=== PATIENT | female | born 1970 | race Caucasian/White ===

== ENCOUNTER 2023-09-29 14:03 | Emergency (ER) | payer OTHER ==
[2023-09-29 14:22] VITALS: BP 149/53; PULSE 89; RESP 18; TEMP 98; BMI 33.4
[2023-09-29] MEDS ORDERED: ACETAMINOPHEN 500 MG TABLET (FP) ONE (14:54)
[2023-09-29] MEDS ORDERED: DIPHTH,PERTUSS(ACELL),TET 0.5 ML DISP.SYRIN IM ONE (14:54)
[2023-09-29] MEDS: DIPHTH,PERTUSS(ACELL),TET 0.5 ML DISP.SYRIN IM ONE (14:59)
[2023-09-29] MEDS: ACETAMINOPHEN 500 MG TABLET (FP) PO ONE (15:01)
== END 2023-09-29 17:59 | disposition home or self-care (01) ==
LOC: JERFT 14:03
PROC: 3E0234Z Introduction of Serum, Toxoid and Vaccine into Muscle, Percutaneous Approach (ICD-10-PCS; principal; 2023-09-29)
DX: S09.90XA Unspecified injury of head, initial encounter (principal); S29.9XXA Unspecified injury of thorax, initial encounter; W10.9XXA Fall (on) (from) unspecified stairs and steps, initial encounter; W01.198A Fall on same level from slipping, tripping and stumbling with subsequent striking against other object, initial encounter; Z23 Encounter for immunization
CPT/HCPCS: 70450-TC; 70486-TC; 71046-TC-FY; 73130-TC-LT-FY; 82962; 90471; 90715; 99285-25